=== PATIENT | male | born 1985 | race Caucasian/White ===

== ENCOUNTER → 2018-04-17 09:19 | Outpatient (CLI) | payer OTHER, SELFPAY ==
[2018-04-17 09:17] VITALS: BMI 22.5
--- NOTE | 2018-04-17 09:25 | RAD_ITS ---
STUDY: X-RAY - LEFT KNEE REASON FOR EXAM: Male, 32 years old. Medial knee pain. TECHNIQUE: 4 view(s) of the knee. COMPARISON: None. FINDINGS: Normal visualized distal femur. Normal visualized proximal tibia and fibula. Normal proximal tibiofibular articulation. Normal medial femorotibial compartment. Normal lateral femorotibial compartment. Normal patellofemoral articulation. Small joint effusion. RAD/Knee 4 or More Views IMPRESSION: Small joint effusion. Electronically Signed: Yoni Adam MD at 10:17 EST , Service support ,
== END ==
PROVIDERS: Visit Provider Physician Assistant Surgical
DX: S80.02XA Contusion of left knee, initial encounter (principal)
CPT/HCPCS: 73564

== ENCOUNTER 2020-11-10 07:05 | Emergency (ER) | payer MEDICAID, SELFPAY ==
[2020-11-10 07:06] VITALS: BP 158/89; PULSE 93; RESP 16; TEMP 36.6; O2SAT 100; BMI 26.5
--- NOTE | 2020-11-10 07:34 | EX.ED.DYSGE1 ---
HPI History of Present Illness Chief Complaint: General Illness Narrative Narrative: subjective fever and chills. He has lost his sense of taste and smell.35-year-old male presenting with a cough, body aches, Patient states that this has been going on for 5 or 6 days. He attribute his illness to coming in contact with his daughter who played soccer over the weekend and came back with a cough. She has since developed a fever and body aches as well. She has recovered however now he has symptoms. Patient has not been vaccinated for COVID-19 nor has his family. Patient denies any significant medical problems. He has no nausea, vomiting, diarrhea. He denies chest pain, palpitations, shortness of breath. PFSH PFS Home Medications azithromycin See Rx Instructions .ROUTE .COMPLEX #6 tab 11/10/20 [Rx Last Taken Unknown] Allergy/AdvReac Type Severity Reaction Status Date / Time No Known Allergies Allergy Verified 11/10/20 07:08 Social History Smoking Status: Current every day smoker tobacco type: cigarettes ROS ROS ED Constitutional Constitutional ED: Reports chills and subjective Eyes Eyes: Denies blurry vision or diplopia ENT ENT ED: Reports rhinorrhea; Denies sore throat Cardiovascular Cardiovascular: Denies chest pain Respiratory/Chest Respiratory/Chest: Reports cough; Denies dyspnea, dyspnea on exertion or sputum Gastrointestinal Gastrointestinal: Denies abdominal pain, constipation, diarrhea, nausea or vomiting Genitourinary Genitourinary ED: Denies dysuria or hematuria Musculoskeletal Musculoskeletal: Reports myalgias; Denies arthralgias or neck pain Integumentary Denies Abrasions or rash Neurologic Neurologic: Denies headache(s) or paresthesias EXAM Physical Exam Const Vital Signs: 11/10/20 07:06 Temperature 97.8 F Temperature Source Temporal Pulse Rate 93 Respiratory Rate 16 Blood Pressure 158/89 H Blood Pressure Mean 112 Pulse Ox 100 Oxygen Delivery Method Room Air Positive well nourished General Appearance ED: NAD; Negative for pallor HEENT Reports moist mucous membranes Negative for trauma Eyes PERRL and EOMs intact bilaterally General Eye ED: Negative for pale conjunctiva or scleral icterus Resp normal respiratory effort and clear to auscultation bilaterally Cardio regular rate and regular rhythm Neuro oriented x3 and CN's II-XII intact bilaterally Psych mental status grossly normal Skin no rashes or lesions noted and no wounds General Skin Exam: Negative for jaundice or pallor MDM MDM MDM Narrative Medical decision making narrative: Patient presenting with viral symptoms. I will check a chest x-ray and send a Covid PCR given that is been 6 days. Chest x-ray on my interpretation shows no acute cardiopulmonary process and the radiologist does agree. Covid PCR testing is negative. Patient counseled to follow-up with his PCP to ensure resolution. Patient given strict precautions. Impression: #1 viral syndrome Lab Data Labs: Laboratory Results - last 24 hr 11/10/20 07:56 COVID-19 ([facility]) Not Detected Radiography Diagnostic Testing: Radiology Impression Chest X-Ray 11/10/20 08:40 IMPRESSION: No acute thoracic pathology. Electronically Signed: Emigdio Stephenson MD at 8:56 EDT Tel , Service support , Discharge Plan Triage Chief Complaint: General Illness ED Provider: Clarence Medina Dx/Rx/DC Orders Instructions: ED Viral Syndrome (Adult) Prescriptions: New azithromycin 250 mg tablet See Rx Instructions .ROUTE .COMPLEX Qty: 6 RF: 0 Primary Care Provider: Care Physician,No Primary Referrals: Terrance George MD [STAFF PHYSICIAN] - As Needed Care Physician,No Primary [Primary Care Provider] - Disposition Disposition: Home, Self Care Discharge Date/Time: 11/10/20 10:01
--- NOTE | 2020-11-10 08:40 | RAD_ITS ---
STUDY: X-RAY CHEST REASON FOR EXAM: Male, 35 years old. Cough TECHNIQUE: Frontal view of the chest COMPARISON: None. FINDINGS: The lungs are clear. There are no pleural effusions. There is no pneumothorax. The heart is normal in size. The visualized osseous structures are within normal limits. RAD/Chest 1 View (Portable) IMPRESSION: No acute thoracic pathology. Electronically Signed: Emigdio Stephenson MD at 8:56 EDT Tel , Service support ,
== END 2020-11-10 10:01 | disposition home or self-care (01) ==
PROVIDERS: Emergency Provider Student in an Organized Health Care Education/Training Program
DX: B34.9 Viral infection, unspecified (principal); F17.210 Nicotine dependence, cigarettes, uncomplicated
CPT/HCPCS: 71045; 87635; 99282; U0005; U0003